=== PATIENT | female | born 1955 | race Caucasian/White ===

== ENCOUNTER 2017-11-29 13:05 | Emergency (ER) | payer MEDICAID ==
[~2017-11-29] VITALS: Ht 167.6 cm; Wt 127.0 kg
[~2017-11-29 13:05] MED LIST: ONDA8TAB9 PO; PANT-47 PO
[2017-11-29 13:12] VITALS: BP 152/89
[2017-11-29] MEDS ORDERED: METF500T PO (13:29)
[2017-11-29] MEDS ORDERED: PANT20TA3 PO (13:29)
[2017-11-29] MEDS ORDERED: BENA5TAB2 PO (13:29)
== END 2017-11-29 13:40 | disposition home or self-care (01) ==
LOC: ER 13:06
DX: E11.9 Type 2 diabetes mellitus without complications (principal); I10 Essential (primary) hypertension; J45.909 Unspecified asthma, uncomplicated; Z88.1 Allergy status to other antibiotic agents; Z88.0 Allergy status to penicillin; Z88.5 Allergy status to narcotic agent; Z79.84 Long term (current) use of oral hypoglycemic drugs; Z79.899 Other long term (current) drug therapy
CPT/HCPCS: 99283

== ENCOUNTER 2024-01-27 12:51 | Inpatient (IN) | payer MEDICAID ==
[~2024-01-27] VITALS: Ht 162.6 cm; Wt 84.0 kg
[~2024-01-27 12:51] MED LIST changes: +PANT20TA18 PO
[2024-01-27 14:40] LABS: BASOPHILS % (AUTO) 0.2 % (0-1); EOSINOPHILS % (AUTO) 0.5 % (0-6); HEMATOCRIT 38.6 % (35.0-45.0); HEMOGLOBIN 12.8 g/dl (12.0-16.0); LYMPHOCYTES # (AUTO) 1.3 X10'3 (1.1-4.8); MEAN CORPUSCULAR HGB CONC 33.2 g/dL (33.0-36.5); MEAN CORPUSCULAR VOLUME 93.2 FL (78-98); MEAN PLATELET VOLUME 7.8 FL (7.4-10.4); MONOCYTES # (AUTO) 0.5 X10'3 (0-0.9); MONOCYTES % (AUTO) 7.8 % (2-12); NEUTROPHILS # (AUTO) 4.4 X10'3 (1.8-7.7); NEUTROPHILS % (AUTO) 70.5 % (42-75); PLATELET COUNT 279 X10'3 (140-440); RED BLOOD COUNT 4.14 X10'6 (4.20-5.60); RED CELL DISTRIBUTION WIDTH 16.6 % (11.5-14.5); WHITE BLOOD COUNT 6.2 X10'3 (4.5-11.0)
[2024-01-27 14:53] LABS: ALBUMIN 3.3 G/DL (3.4-5.0); ANION GAP 9 (8-16); BLOOD UREA NITROGEN 4 MG/DL (7-18); BUN/CREATININE RATIO 4.8 (10.0-20.0); CALCIUM 8.7 MG/DL (8.5-10.1); CHLORIDE 106 MMOL/L (99-107); CREATININE 0.83 MG/DL (0.40-0.90); GLUCOSE 175 MG/DL (70-104); SODIUM 144 MMOL/L (135-145); TOTAL CARBON DIOXIDE 29.4 MMOL/L (24-32); eCRCL 57 ML/MIN; eGFR 69 ML/MIN
[2024-01-27 15:02] LABS: ETHANOL < 10 MG/DL (<10); POTASSIUM 2.6 MMOL/L (3.5-5.1)
[2024-01-27] MEDS: potassium Cl 20 mEq SR tablet PO STA ×3 (16:13→19:45)
[2024-01-27] MEDS: potassium Cl 20mEq in D5-NS 1,000 ML IV ONE (16:30)
[2024-01-27] MEDS: LORazepam 2 mg/ml vial IV ONE (16:32)
[2024-01-27] MEDS ORDERED: mag hydrox/Alum hydrox/simeth 30ml oral suspension PO PRN (17:25)
[2024-01-27] MEDS ORDERED: ondansetron/PF 4mg/2ml inj IV PRN (17:25)
[2024-01-27] MEDS ORDERED: magnesium sulf-water 4G/100mL 100 ML IV PRN (17:25)
[2024-01-27] MEDS ORDERED: magnesium hydroxide 30ml (MOM) UD suspension PO PRN (17:25)
[2024-01-27] MEDS ORDERED: magnesium sulf-water 2g/50mL 50 ML IV PRN (17:25)
[2024-01-27] MEDS ORDERED: acetaminophen 325mg tablet PO PRN (17:25)
[2024-01-27] MEDS ORDERED: magnesium Cl slow-release 64mg tablet PO PRN (17:25)
[2024-01-27] MEDS ORDERED: potassium Cl 20 mEq SR tablet PO PRN (17:25)
[2024-01-27] MEDS: quetiapine 100mg tablet PO SCH (17:45)
[2024-01-27] MEDS: QUEtiapine 25mg tablet PO ONE ×2 (18:01→19:15)
[2024-01-27 19:07] LABS: HEMOGLOBIN A1C 5.8 % (4.5-6.2)
[2024-01-27] MEDS: normal saline 1000ml 1,000 ML IV SCH (19:09)
[2024-01-27] MEDS: K and/or MAG REPLACEMENT MC SCH (19:38)
[2024-01-27] MEDS: heparin, porcine 5000 units/ml vial SQ SCH (20:00)
[2024-01-27 21:10] VITALS: BP 150/66; PULSE 97; RESP 18; TEMP 98; O2SAT 98
[2024-01-27] MEDS: potassium Cl 40MEQ/1/2NS 520ml 520 ML IV PRN (21:35)
[2024-01-28 00:42] LABS: BILIRUBIN,URINE NEGATIVE (Neg); CLARITY,URINE CLOUDY (Clear); COLOR,URINE YELLOW (Yellow); GLUCOSE, URINE NEGATIVE (Neg); KETONES,URINE 15 mg/dl (Neg); LEUKOCYTE ESTERASE ,URINE SMALL (Neg); NITRITES, URINE POSITIVE (Neg); OCCULT BLOOD,URINE NEGATIVE (Neg); PROTEIN,URINE NEGATIVE (Neg)
[2024-01-28 00:43] LABS: UA COLLECTION TYPE NON-SPECIFIED
[2024-01-28 00:52] LABS: MUCUS STRANDS NONE SEEN /LPF (Neg); SQUAMOUS EPITHELIAL CELL,UR MODERATE /LPF (FEW); TRANSITIONAL EPI CELLS,URINE MODERATE /HPF
[2024-01-28 00:53] LABS: BACTERIA,URINE 4+ /HPF (Neg); WBC,URINE 30-50 /HPF (0-4)
[2024-01-28 00:54] LABS: RBC,URINE 0-2 /HPF (0-2)
[2024-01-28 00:59] LABS: URINE AMPHETAMINE SCREEN NEGATIVE (Neg); URINE BARBITUATE SCREEN NEGATIVE (Neg); URINE BENZODIAZEPINES SCREEN NEGATIVE (Neg); URINE CANNABINOID SCREEN NEGATIVE (Neg); URINE COCAINE SCREEN NEGATIVE (Neg); URINE METHADONE SCREEN NEGATIVE (Neg); URINE OPIATE SCREEN NEGATIVE (Neg); URINE PHENCYCLIDINE SCREEN NEGATIVE (Neg)
[2024-01-28 05:59] LABS: BASOPHILS % (AUTO) 0.8 % (0-1); EOSINOPHILS # (AUTO) 0.1 X10'3 (0-0.9); EOSINOPHILS % (AUTO) 1.9 % (0-6); HEMATOCRIT 33.9 % (35.0-45.0); HEMOGLOBIN 11.3 g/dl (12.0-16.0); LYMPHOCYTES # (AUTO) 1.6 X10'3 (1.1-4.8); LYMPHOCYTES % (AUTO) 30.6 % (21-51); MEAN CORPUSCULAR HEMOGLOBIN 31.1 PG (27.0-31.0); MEAN CORPUSCULAR HGB CONC 33.3 g/dL (33.0-36.5); MEAN CORPUSCULAR VOLUME 93.4 FL (78-98); MEAN PLATELET VOLUME 8.4 FL (7.4-10.4); MONOCYTES # (AUTO) 0.6 X10'3 (0-0.9); MONOCYTES % (AUTO) 11.8 % (2-12); NEUTROPHILS # (AUTO) 2.8 X10'3 (1.8-7.7); NEUTROPHILS % (AUTO) 54.9 % (42-75); PLATELET COUNT 217 X10'3 (140-440); RED BLOOD COUNT 3.62 X10'6 (4.20-5.60); RED CELL DISTRIBUTION WIDTH 16.4 % (11.5-14.5); WHITE BLOOD COUNT 5.1 X10'3 (4.5-11.0)
[2024-01-28 06:29] LABS: ALANINE AMINOTRANSFERASE 7 U/L (12-78); ALBUMIN 2.7 G/DL (3.4-5.0); ALBUMIN/GLOBULIN RATIO 0.9 (1.1-1.5); ALKALINE PHOSPHATASE 17 IU/L (46-116); ANION GAP 7 (8-16); ASPARTATE AMINO TRANSFERASE 16 U/L (10-37); BILIRUBIN,TOTAL 0.7 MG/DL (0.1-1.0); BLOOD UREA NITROGEN 4 MG/DL (7-18); BUN/CREATININE RATIO 6.3 (10.0-20.0); CALCIUM 8.3 MG/DL (8.5-10.1); CHLORIDE 111 MMOL/L (99-107); CHOL/HDL RATIO 2.6 (0.00-4.99); CHOLESTEROL 146 MG/DL (0-200); CREATININE 0.63 MG/DL (0.40-0.90); GLUCOSE 97 MG/DL (70-104); HDL CHOLESTEROL 56 MG/DL (35-60); LDL CHOLESTEROL 73 MG/DL (50-100); MAGNESIUM 1.7 MG/DL (1.5-2.4); PHOSPHORUS 3.2 MG/DL (2.3-4.5); POTASSIUM 3.1 MMOL/L (3.5-5.1); SODIUM 147 MMOL/L (135-145); THYROID STIMULATING HORMONE 6.85 ulU/ml (0.34-4.50); TOTAL PROTEIN 5.8 G/DL (6.4-8.2); TRIGLYCERIDES 95 MG/DL (20-135); eCRCL 75 ML/MIN; eGFR > 90 ML/MIN
[2024-01-28 08:05] VITALS: BP 140/73; PULSE 71; RESP 18; TEMP 98.2; O2SAT 99
[2024-01-28] MEDS: levoFLOXACIN-Levaquin 500mg/D5 100 ML IV ONE (10:04)
[2024-01-28] MEDS: potassium Cl 20 mEq SR tablet PO PRN (11:57)
[2024-01-28 14:00] VITALS: BP 108/50; PULSE 83; RESP 16; TEMP 97.6; O2SAT 97
[2024-01-28] MEDS ORDERED: LORazepam 2 mg/ml vial IM ONE (14:35)
[2024-01-28] MEDS: LORazepam 2 mg/ml vial IV ONE (15:03)
[2024-01-28 20:00] VITALS: RESP 18; O2SAT 96
[2024-01-28 22:00] VITALS: BP 122/61; PULSE 78; RESP 18; TEMP 98; O2SAT 96
[2024-01-29 04:19] LABS: BASOPHILS % (AUTO) 0.6 % (0-1); EOSINOPHILS # (AUTO) 0.1 X10'3 (0-0.9); EOSINOPHILS % (AUTO) 2.1 % (0-6); HEMATOCRIT 32.5 % (35.0-45.0); HEMOGLOBIN 10.7 g/dl (12.0-16.0); LYMPHOCYTES % (AUTO) 43.5 % (21-51); MEAN CORPUSCULAR HEMOGLOBIN 30.8 PG (27.0-31.0); MEAN CORPUSCULAR HGB CONC 32.9 g/dL (33.0-36.5); MEAN CORPUSCULAR VOLUME 93.6 FL (78-98); MEAN PLATELET VOLUME 8.3 FL (7.4-10.4); MONOCYTES # (AUTO) 0.5 X10'3 (0-0.9); MONOCYTES % (AUTO) 10.7 % (2-12); NEUTROPHILS % (AUTO) 43.1 % (42-75); PLATELET COUNT 196 X10'3 (140-440); RED BLOOD COUNT 3.47 X10'6 (4.20-5.60); RED CELL DISTRIBUTION WIDTH 16.6 % (11.5-14.5); WHITE BLOOD COUNT 4.5 X10'3 (4.5-11.0)
[2024-01-29 04:31] LABS: ALANINE AMINOTRANSFERASE < 6 U/L (12-78); ALBUMIN 2.6 G/DL (3.4-5.0); ALBUMIN/GLOBULIN RATIO 0.9 (1.1-1.5); ALKALINE PHOSPHATASE 17 IU/L (46-116); ANION GAP 6 (8-16); ASPARTATE AMINO TRANSFERASE 12 U/L (10-37); BILIRUBIN,TOTAL 0.4 MG/DL (0.1-1.0); BLOOD UREA NITROGEN 9 MG/DL (7-18); BUN/CREATININE RATIO 13.8 (10.0-20.0); CALCIUM 8.4 MG/DL (8.5-10.1); CHLORIDE 109 MMOL/L (99-107); CREATININE 0.65 MG/DL (0.40-0.90); GLUCOSE 114 MG/DL (70-104); MAGNESIUM 1.7 MG/DL (1.5-2.4); PHOSPHORUS 3.4 MG/DL (2.3-4.5); POTASSIUM 3.6 MMOL/L (3.5-5.1); SODIUM 144 MMOL/L (135-145); TOTAL CARBON DIOXIDE 29.4 MMOL/L (24-32); TOTAL PROTEIN 5.5 G/DL (6.4-8.2); eCRCL 73 ML/MIN; eGFR > 90 ML/MIN
[2024-01-29] MEDS ORDERED: levoFLOXACIN 500mg tablet PO SCH (11:00)
[2024-01-29] MEDS ORDERED: LORazepam 2 mg/ml vial IV PRN (12:30)
[2024-01-29] MEDS ORDERED: LEVO-65 PO (12:42)
== END 2024-01-29 18:15 | disposition home or self-care (01) | DRG 52 ==
LOC: ER 12:51 → OBSVTOIN 18:09 → ED HOLD 18:09 → SUR 3N 21:10
PROVIDERS: ADMIT Internal Medicine; ATTEND Internal Medicine
DX: G93.49 Other encephalopathy (principal); E11.9 Type 2 diabetes mellitus without complications; E87.6 Hypokalemia; N39.0 Urinary tract infection, site not specified; J45.909 Unspecified asthma, uncomplicated; F31.9 Bipolar disorder, unspecified; Z88.0 Allergy status to penicillin; Z88.2 Allergy status to sulfonamides; Z88.5 Allergy status to narcotic agent; Z88.1 Allergy status to other antibiotic agents
CPT/HCPCS: 36415; 70450; 80048; 80053; 80061; 80305; 80320; 81001; 82140; 82607; 82948; 83036; 83735; 84100; 84132; 84443; 85025; 87077; 87081; 87088; 87186; 93005; 96365; 96375; 99285; A6258; G0378; J1644; J1956; J2060; J3480; J7030